=== PATIENT | female | born 1950 | race Caucasian/White ===

== ENCOUNTER 2016-09-04 21:13 | Emergency (ER) | payer MEDICARE, SELFPAY ==
[~2016-09-04 21:13] MED LIST: ATROVENT2.5 ML NEB; CHILDRENS CHEWA81 MG PO; COREG6.25 MG PO; DIABETA5 MG PO; JANUVIA50 MG PO; LEVAQUIN750 MG PO; LIPITOR40 MG PO; NEURONTIN100 MG PO; NICODERM 21MG PA1 EA TD; PLAVIX75 MG PO; TYLENOL325 M1 PO; VITAMIN D32000 UNIT PO; XOPENEX0.63 MG/3 NEB; ZESTRIL2.5 MG PO
== END 2016-09-04 23:37 | disposition home or self-care (01) ==
LOC: ER 21:13
DX: J44.1 Chronic obstructive pulmonary disease with (acute) exacerbation (principal); E11.9 Type 2 diabetes mellitus without complications; F17.210 Nicotine dependence, cigarettes, uncomplicated; Z79.02 Long term (current) use of antithrombotics/antiplatelets; Z79.899 Other long term (current) drug therapy; Z95.810 Presence of automatic (implantable) cardiac defibrillator
CPT/HCPCS: 71020; 87400; 94664; 96372; 99284; 99284-25